=== PATIENT | female | born 1990 | race Caucasian/White ===

== ENCOUNTER → 2019-04-29 | Outpatient (CLI) | payer OTHER ==
--- NOTE | 2019-04-29 21:03 | ECHOS ---
STRESS ECHOCARDIOGRAM LUMASON: @@ Vial INDICATIONS: Abnormal EKG MEDICATIONS: control, Bentyl BASELINE HEART RATE: 85 BASELINE BLOOD PRESSURE: 111/76 MAXIMUM HEART RATE: 180 MAXIMUM BLOOD PRESSURE: 151/71 85% MPHR: 165 100% MPHR: 194 METS: 11.7 MAXIMUM STAGE REACHED: 4 TOTAL EXERCISE TIME: 10 minutes CLINICAL INFORMATION: This is an exercise stress echocardiogram. The patient has an abnormal ECG. Baseline heart rate 85 beats per minute. Baseline blood pressure 111/76 mmHg. Baseline 12-lead ECG shows normal sinus rhythm with a [address] depression inferolaterally. Patient exercised on a Soren protocol for 10 minutes, achieving a peak heart rate of 180 beats per minute. Normal blood pressure response. There was no ECG evidence for ischemia. No arrhythmias were noted. Baseline 2D echo images showed normal LV size and systolic function without segmental wall motion abnormalities. At peak exercise, there was augmentation of overall LV contractility without development of any clear-cut wall motion abnormalities. At recovery, regional global LV systolic function remained normal. IMPRESSION: 1. No ECG evidence for ischemia. 2. No clear-cut echocardiographic evidence for ischemia. 3. Excellent exercise capacity. MMODL / IJN: [id number] /
== END | disposition home or self-care (01) ==
LOC: RADNMMAIN 09:04
PROVIDERS: ATTEND Family Medicine
DX: I49.9 Cardiac arrhythmia, unspecified (principal)
CPT/HCPCS: 93351

== ENCOUNTER 2021-11-15 19:35 | Emergency (ER) | payer BC, OTHER ==
[2021-11-15 21:28] VITALS: TEMP 98.2
[2021-11-15 22:00] LABS: Basophils % (A) 0 %; Eosinophils # (A) 0.1 k/uL (0-0.7); Eosinophils % (A) 1 %; HCT 41.1 % (34.0-46.0); HGB 13.5 gm/dL (11.4-16.0); Lymphocytes # (A) 2.7 k/uL (1.0-4.8); Lymphocytes % (A) 26 %; MCHC 32.9 g/dL (31.0-37.0); MCV 88.2 fL (80.0-100.0); Mean Platelet Volume 8.2; Monocytes # (A) 0.5 k/uL (0-1.0); Monocytes % (A) 5 %; Neutrophils # (A) 6.9 k/uL (1.3-7.7); Neutrophils % (A) 66 %; Platelet Count 218 k/uL (150-450); RBC 4.66 m/uL (3.80-5.40); RDW 13.8 % (11.5-15.5); WBC 10.3 k/uL (3.8-10.6)
[2021-11-15 22:20] LABS: Appearance,Urine Clear (Clear); Bacteria,Urine Rare /hpf; Bilirubin,Urine Negative (Negative); Blood,Urine Moderate (Negative); Color,Urine Light Yellow; Glucose,Urine (UA) Negative (Negative); Ketones,Urine Negative (Negative); Leukocyte Esterase,Urine Moderate (Negative); Mucus,Urine Few /hpf; Nitrite,Urine Negative (Negative); PH, Urine 6.5 (5.0-8.0); Protein,Urine Negative (Negative); RBC,Urine 1 /hpf (0-5); Specific Gravity,Urine 1.019 (1.001-1.035); Squamous Epithelial Cell,Urine 2 /hpf (0-4); Urobilinogen,Urine <2.0 mg/dL (<2.0); WBC,Urine 13 /hpf (0-5)
[2021-11-15 22:24] LABS: ALT 16 U/L (4-34); AST 21 U/L (14-36); African American GFR (CKD) >90 (>60 ml/min/1.73 sqM); Albumin 4.8 g/dL (3.5-5.0); Alkaline Phosphatase 68 U/L (38-126); Anion Gap 15 mmol/L; Blood Urea Nitrogen 12 mg/dL (7-17); Calcium 9.9 mg/dL (8.4-10.2); Carbon Dioxide 21 mmol/L (22-30); Chloride 101 mmol/L (98-107); Glucose 89 mg/dL (74-99); Non-African American GFR(CKD) >90 (>60 ml/min/1.73 sqM); Potassium 3.6 mmol/L (3.5-5.1); Sodium 137 mmol/L (137-145); Total Bilirubin 0.2 mg/dL (0.2-1.3); Total Protein 7.5 g/dL (6.3-8.2)
--- NOTE | 2021-11-15 23:30 | ED ---
Female Urogenital HPI - General Chief complaint: Vaginal Bleeding Stated complaint: Bleeding 9 weeks preg,cramping Time Seen by Provider: 11/15/21 23:24 Source: patient, RN notes reviewed Mode of arrival: ambulatory Limitations: no limitations - History of Present Illness Initial comments: 6 is a pleasant 31-year-old female with a history of cardiomyopathy. Patient states she started having some vaginal bleeding today. She states this is quite late and much less than her normal menses. Patient denies any presyncopal symptoms. No chest pain. Patient does have cardiomyopathy and states she was taken off of her beta christine about 5 days ago due to the . She states she does occasionally get some palpitations due to that. Patient has an upcoming appointment with her hand stoner. Really denies any abdominal or pelvic pain. No headache, no fever or chills, no changes in vision or hearing, no sore throat or difficulty with speech, no neck pain, no chest pain or shortness of breath, no abdominal pain, no nausea or vomiting, no changes in urination or bowel movements, no numbness or tingling, no extremity pain, no skin rashes or lesions. Past medical, surgical, social, and family history reviewed. Patient is A0 Complaint: vaginal bleeding - Related Data Home Medications Medication Instructions Recorded Confirmed Fluticasone Nasal [place] [Flonase 2 spr EA NOSTRIL DAILY 06/28/15 06/28/15 Nasal [place]] Montelukast [Singulair] 10 mg PO DAILY 06/28/15 06/28/15 norgestimate-ethinyl estradioL 1 tab PO DAILY 06/28/15 06/28/15 [Tri-Sprintec Tablet] Previous Rx's Medication Instructions Recorded Amoxicillin/Potassium Clav 1 each PO Q12HR #20 tab 06/28/15 [Augmentin 875-125 Tablet] Nitrofurantoin Monohyd/M-Cryst 100 mg PO Q12HR #10 cap 11/16/21 [Macrobid] Allergies Allergy/AdvReac Type Severity Reaction Status Date / Time No Known Allergies Allergy Verified 11/15/21 21:28 Review of Systems ROS Statement: Those systems with pertinent positive or pertinent negative responses have been documented in the HPI. ROS Other: All systems not noted in ROS Statement are negative. Past Medical History Past Medical History: No Reported History Additional Past Medical History / Comment(s): cardiomyopathy History of Any Multi-Drug Resistant Organisms: None Reported Past Surgical History: No Surgical Hx Reported Past Psychological History: No Psychological Hx Reported Smoking Status: Never smoker Past Alcohol Use History: None Reported Past Drug Use History: None Reported General Exam - General Exam Comments Initial Comments: Patient does not appear to be in any significant distress. Vital signs stable, patient afebrile. Limitations: no limitations General appearance: alert, in no apparent distress Head exam: Present: atraumatic, normocephalic, normal inspection Eye exam: Present: normal appearance, PERRL, EOMI. Absent: scleral icterus, conjunctival injection, periorbital swelling ENT exam: Present: normal exam, mucous membranes moist Neck exam: Present: normal inspection, full ROM. Absent: tenderness, meningismus, lymphadenopathy Respiratory exam: Present: normal lung sounds bilaterally. Absent: respiratory distress, wheezes, rales, rhonchi, stridor Cardiovascular Exam: Present: regular rate, normal rhythm, normal heart sounds. Absent: systolic murmur, diastolic murmur, rubs, gallop, clicks GI/Abdominal exam: Present: soft, normal bowel sounds. Absent: distended, tenderness, guarding, rebound, rigid Extremities exam: Present: normal inspection, full ROM, normal capillary refill. Absent: tenderness, pedal edema, joint swelling, calf tenderness Back exam: Present: normal inspection Neurological exam: Present: alert, oriented X3, CN II-XII intact Psychiatric exam: Present: normal affect, normal mood Skin exam: Present: warm, dry, intact, normal color. Absent: rash Course Vital Signs 11/15/21 21:24 Temperature 98.2 F Pulse Rate 83 Respiratory 20 Rate Blood Pressure 131/71 O2 Sat by Pulse 100 Oximetry - Reevaluation(s) Reevaluation #1: 11/15/21 23:54 Quantitative hCG is 133,613. Patient's urinalysis does show 13 white blood cells per high-powered field with rare bacteria. Given that the patient is and I'm going to order a urine culture and treat with nitrofurantoin. Currently awaiting Rh factor. Medical Decision Making - Medical Decision Making Patient's Rh factor is negative. Patient will require isoimmunization with RhoGAM. All findings discussed with the patient. Urine culture ordered. Patient to follow-up with ROD FILLER. Patient is hemodynamically stable. Transvaginal ultrasound shows a 6 week 5 day intrauterine which is discordant with the patient's last menstrual period of 08/14/2021. However, heart rate is 142. No other comp caning processes are seen. Patient has a follow-up appointment with her design technology teacher on Friday. Patient deferred a pelvic examination. Patient has no vaginal discharge. Patient in no distress. Has no pain. Patient will be given RhoGAM We will treat the patient with 5 days of Macrobid. All findings discussed with the patient. All questions answered. Patient be put on pelvic rest until follow-up on Friday. The case was discussed in detail with ED attending physician. Presentation, findings, treatment plan discussed in detail. Ricardo or Dr. Blackwood - Lab Data Result diagrams: 11/15/21 21:43 11/15/21 21:43 Lab Results 11/15/21 11/15/21 11/15/21 Range/Units 21:39 21:43 21:43 WBC 10.3 (3.8-10.6) k/uL RBC 4.66 (3.80-5.40) m/uL Hgb 13.5 (11.4-16.0) gm/dL Hct 41.1 (34.0-46.0) % MCV 88.2 (80.0-100.0) fL MCH 29.0 (25.0-35.0) pg MCHC 32.9 (31.0-37.0) g/dL RDW 13.8 (11.5-15.5) % Plt Count 218 (150-450) k/uL MPV 8.2 Neutrophils % 66 % Lymphocytes % 26 % Monocytes % 5 % Eosinophils % 1 % Basophils % 0 % Neutrophils # 6.9 (1.3-7.7) k/uL Lymphocytes # 2.7 (1.0-4.8) k/uL Monocytes # 0.5 (0-1.0) k/uL Eosinophils # 0.1 (0-0.7) k/uL Basophils # 0.0 (0-0.2) k/uL Sodium 137 (137-145) mmol/L Potassium 3.6 (3.5-5.1) mmol/L Chloride 101 (98-107) mmol/L Carbon Dioxide 21 L (22-30) mmol/L Anion Gap 15 mmol/L BUN 12 (7-17) mg/dL Creatinine 0.51 L (0.52-1.04) mg/dL Est GFR (CKD-EPI)AfAm >90 (>60 ml/min/1.73 sqM) Est GFR (CKD-EPI)NonAf >90 (>60 ml/min/1.73 sqM) Glucose 89 (74-99) mg/dL Calcium 9.9 (8.4-10.2) mg/dL Total Bilirubin 0.2 (0.2-1.3) mg/dL AST 21 (14-36) U/L ALT 16 (4-34) U/L Alkaline Phosphatase 68 (38-126) U/L Total Protein 7.5 (6.3-8.2) g/dL Albumin 4.8 (3.5-5.0) g/dL HCG, Quant 788003.0 mIU/mL Urine Color Urine Appearance (Clear) Urine pH (5.0-8.0) Ur Specific [place] (1.001-1.035) Urine Protein (Negative) Urine Glucose (UA) (Negative) Urine Ketones (Negative) Urine Blood (Negative) Urine Nitrite (Negative) Urine Bilirubin (Negative) Urine Urobilinogen (<2.0) mg/dL Ur Leukocyte Esterase (Negative) Urine RBC (0-5) /hpf Urine WBC (0-5) /hpf Ur Squamous Epith Cells (0-4) /hpf Urine Bacteria (None) /hpf Urine Mucus (None) /hpf Blood Type O Negative Blood Type Recheck No Previous Record Bld Type Recheck Status CABO Indicated Antibody Screen NEGATIVE Spec Expiration Date 11/18/2021 - 233811/15/21 Range/Units 21:54 WBC (3.8-10.6) k/uL RBC (3.80-5.40) m/uL Hgb (11.4-16.0) gm/dL Hct (34.0-46.0) % MCV (80.0-100.0) fL MCH (25.0-35.0) pg MCHC (31.0-37.0) g/dL RDW (11.5-15.5) % Plt Count (150-450) k/uL MPV Neutrophils % % Lymphocytes % % Monocytes % % Eosinophils % % Basophils % % Neutrophils # (1.3-7.7) k/uL Lymphocytes # (1.0-4.8) k/uL Monocytes # (0-1.0) k/uL Eosinophils # (0-0.7) k/uL Basophils # (0-0.2) k/uL Sodium (137-145) mmol/L Potassium (3.5-5.1) mmol/L Chloride (98-107) mmol/L Carbon Dioxide (22-30) mmol/L Anion Gap mmol/L BUN (7-17) mg/dL Creatinine (0.52-1.04) mg/dL Est GFR (CKD-EPI)AfAm (>60 ml/min/1.73 sqM) Est GFR (CKD-EPI)NonAf (>60 ml/min/1.73 sqM) Glucose (74-99) mg/dL Calcium (8.4-10.2) mg/dL Total Bilirubin (0.2-1.3) mg/dL AST (14-36) U/L ALT (4-34) U/L Alkaline Phosphatase (38-126) U/L Total Protein (6.3-8.2) g/dL Albumin (3.5-5.0) g/dL HCG, Quant mIU/mL Urine Color Light Yellow Urine Appearance Clear (Clear) Urine pH 6.5 (5.0-8.0) Ur Specific [place] 1.019 (1.001-1.035) Urine Protein Negative (Negative) Urine Glucose (UA) Negative (Negative) Urine Ketones Negative (Negative) Urine Blood Moderate H (Negative) Urine Nitrite Negative (Negative) Urine Bilirubin Negative (Negative) Urine Urobilinogen <2.0 (<2.0) mg/dL Ur Leukocyte Esterase Moderate H (Negative) Urine RBC 1 (0-5) /hpf Urine WBC 13 H (0-5) /hpf Ur Squamous Epith Cells 2 (0-4) /hpf Urine Bacteria Rare H (None) /hpf Urine Mucus Few H (None) /hpf Blood Type Blood Type Recheck Bld Type Recheck Status Antibody Screen Spec Expiration Date Disposition Clinical Impression: Threatened miscarriage in early Disposition: HOME SELF-CARE Condition: Stable Instructions (If sedation given, give patient instructions): Threatened Miscarriage (ED) Additional Instructions: Pelvic rest as discussed. Follow-up with your design technology teacher on Friday as planned. Follow-up with your regular physician as directed. Return to the ER immediately if any symptoms worsen, new symptoms arise, or any other problems develop. Take antibiotics as directed. Have a serum quantitative hCG drawn prior to your appointment on Friday Is patient prescribed a controlled substance at d/c from ED?: No Referrals: Gwen Rodrigues DO [Primary Care Provider] - 1-2 days (As needed) Time of Disposition: 00:16
--- NOTE | 2021-11-15 23:32 | US ---
EXAMINATION TYPE: Transabdominal DATE OF EXAM: 11/15/2021 10:47 PM COMPARISON: NONE CLINICAL HISTORY: bleeding. light bleeding today EXAM PERFORMED: Transabdominal (TA) EXAM MEASUREMENTS: GESTATIONAL AGE / DATING Physician Established: Not yet established Dates by LMP: 08/14/21 (13 weeks/2 days) EDC: 05/21/22 Dates by First Scan: No previous this is first scan Dates by Current Scan for: (6 weeks/5 days) EDC: 07/06/22 MATERNAL ANATOMY Uterus: 8.5 x 6.6 x 5.4 cm Right Ovary: 3.0 x 2.0 x 2.2 cm Left Ovary: Not vis Post CDS / Adnexa: WNL Presence of free fluid: No Presence of corpus luteal cyst: No Presence of subchorionic bleed: No GESTATION / SURVEY CRL: 0.84cm (6 weeks/5 days) Yolk Sac (normal less than 6mm): 2.5mm Heart Rate: 142 bpm Rhythm: Normal IUP: Viable IUP Date of LMP: 08/14/21 Beta HcG (if available): 133,613 IMPRESSION: The ultrasound gestational age is 6 weeks and 5 days. No complicating process seen.
[2021-11-15] MEDS ORDERED: Rhogam IMMUNE GLOBULIN 1,500 UNIT/1 ML IM STA (23:55)
[2021-11-15] MEDS ORDERED: NITROFURANTOIN MONOHYD/M-CRYST 100 MG CAP PO STA (23:55)
[2021-11-16 00:59] VITALS: BP 108/68; PULSE 77; RESP 16
== END 2021-11-16 01:16 | disposition home or self-care (01) ==
LOC: EC 19:35
DX: O20.0 Threatened abortion (principal); Z3A.09 9 weeks gestation of pregnancy
CPT/HCPCS: 36415; 86900; 86901; 80053; 85025; 86850; 81001; 84702; 87086; 76801; 99284; 96372; J2790

== ENCOUNTER 2022-06-26 05:48 | Inpatient (IN) | payer BC ==
[2022-06-26] MEDS ORDERED: OXYTOCIN 10 UNIT/ML 1 ML VIAL IM PRN (06:04)
[2022-06-26] MEDS ORDERED: METHYLERGONOVINE 0.2 MG/ML 1 ML AMP IM PRN (06:04)
[2022-06-26] MEDS ORDERED: LIDOCAINE 0.5% (PF) 5 MG/ML (50 ML SDV) SQ PRN (06:04)
[2022-06-26] MEDS ORDERED: CARBOPROST TROMETHAMINE 250 MCG/ML 1 ML AMP IM PRN (06:04)
[2022-06-26] MEDS ORDERED: TRANEXAMIC ACID IN NACL,ISO-OS 1,000 MG in EMPTY BAG 1 BAG IV PRN (06:04)
[2022-06-26] MEDS ORDERED: miSOPROStoL 200 MCG TAB PO PRN (06:04)
[2022-06-26] MEDS ORDERED: TERBUTALINE 1 MG/ML VIAL SQ PRN (06:04)
[2022-06-26 06:14] LABS: Glucose,Whole Blood 91 mg/dL (70-110)
[2022-06-26] MEDS ORDERED: OXYTOCIN 30 UNITS/500 ML NS 30 UNIT in SALINE 1 500ML.BAG IV SCH ×2 (06:15→19:00)
[2022-06-26 06:34] LABS: Basophils % (A) 0 %; Eosinophils # (A) 0.1 k/uL (0-0.7); Eosinophils % (A) 1 %; HCT 34.2 % (34.0-46.0); HGB 11.2 gm/dL (11.4-16.0); Lymphocytes # (A) 2.5 k/uL (1.0-4.8); Lymphocytes % (A) 22 %; MCH 25.7 pg (25.0-35.0); MCHC 32.7 g/dL (31.0-37.0); MCV 78.7 fL (80.0-100.0); Mean Platelet Volume 11.1; Monocytes # (A) 0.6 k/uL (0-1.0); Monocytes % (A) 5 %; Neutrophils # (A) 8.3 k/uL (1.3-7.7); Neutrophils % (A) 70 %; Platelet Count 146 k/uL (150-450); RBC 4.35 m/uL (3.80-5.40); RDW 15.1 % (11.5-15.5); WBC 11.8 k/uL (3.8-10.6)
[2022-06-26] MEDS: LACTATED RINGERS 1,000 ML IV SCH ×4 (06:52→12:50)
[2022-06-26] MEDS ORDERED: SODIUM CHLORIDE 0.9% 100 ML BAG ONE (10:20)
[2022-06-26] MEDS ORDERED: fentaNYL (PF) 50 MCG/ML 5 ML AMP ONE (10:20)
[2022-06-26] MEDS ORDERED: ROPIVACAINE 5 MG/ML 20 ML AMPULE ONE (10:20)
[2022-06-26] MEDS ORDERED: ROPIVACAINE 100 MG, fentaNYL (PF). 200 MCG in SODIUM CHLORIDE 0.9% 76 ML EPIDURAL ONE (10:52)
[2022-06-26] MEDS ORDERED: ROPIVACAINE 225 MG, fentaNYL (PF). 450 MCG in SODIUM CHLORIDE 0.9% 171 ML EPIDURAL ONE (11:00)
[2022-06-26] MEDS ORDERED: CITRIC ACID-SODIUM CITRATE 15 ML CUP PO ONE (18:00)
[2022-06-26] MEDS ORDERED: OXYTOCIN 30 UNITS/500 ML NS BAG IV ONE (18:03)
[2022-06-26] MEDS ORDERED: OXYTOCIN 10 UNIT/ML 1 ML VIAL ONE (18:03)
[2022-06-26] MEDS ORDERED: MORPHINE SULFATE (PF) 0.3 MG/0.3 ML SYR ONE (18:03)
[2022-06-26] MEDS ORDERED: ONDANSETRON 4 MG/2 ML VIAL ONE (18:03)
[2022-06-26] MEDS ORDERED: fentaNYL (PF) 50 MCG/ML 2 ML AMP ONE (18:03)
[2022-06-26] MEDS ORDERED: LIDOCAINE HCL/PF 20 MG/ML 10 ML AMP ONE (18:03)
[2022-06-26] MEDS ORDERED: ZOLPIDEM 5 MG TAB PO PRN (18:46)
[2022-06-26] MEDS ORDERED: diphenhydrAMINE 50 MG/ML 1 ML VIAL IVP PRN ×2 (18:46)
[2022-06-26] MEDS ORDERED: diphenhydrAMINE 50 MG CAP PO PRN (18:46)
[2022-06-26] MEDS ORDERED: NALOXONE 0.4 MG/ML 1 ML VIAL IV PRN (18:46)
[2022-06-26] MEDS ORDERED: ONDANSETRON 4 MG/2 ML VIAL IVP PRN (18:46)
[2022-06-26] MEDS ORDERED: diphenhydrAMINE 25 MG CAP PO PRN (18:46)
[2022-06-26] MEDS ORDERED: SIMETHICONE 80 MG CHEWABLE PO PRN (18:46)
[2022-06-26] MEDS ORDERED: METOCLOPRAMIDE 5 MG/ML 2 ML VIAL IVP PRN (18:46)
--- NOTE | 2022-06-26 18:55 | P.HPOB ---
History of Present Illness H&P Date: 06/26/22 Chief Complaint: IUP at 39 weeks, GDM 31-year-old 1 para 0 at 39 weeks of presents for induction of labor. Patient has a prior question will history of cardiac myopathy for which she sees cardiology. Patient's cardiac function has been normal. Cardiology has seen this patient during the and prior. Patient had been receiving routine care which was complicated by diagnosis of gestational diabetes, gestational diabetes was well-controlled with diet. Patient underwent testing which has been normal. On bloodwork this patient has a blood type of O-, rubella nonimmune, hepatitis B surface antigen negative, HIV negative, RPR is nonreactive, group beta strep culture negative Review of Systems Constitutional: Denies chills, Denies fatigue, Denies fever Ears, nose, mouth and throat: Denies headache Cardiovascular: Denies leg edema Respiratory: Denies dyspnea Gastrointestinal: Denies constipation, Denies diarrhea, Denies nausea, Denies vomiting Genitourinary: Reports Past Medical History Past Medical History: No Reported History Additional Past Medical History / Comment(s): cardiomyopathy, GDM History of Any Multi-Drug Resistant Organisms: None Reported Past Surgical History: No Surgical Hx Reported Past Psychological History: No Psychological Hx Reported Smoking Status: Never smoker Past Alcohol Use History: None Reported Past Drug Use History: None Reported Medications and Allergies Home Medications Medication Instructions Recorded Confirmed Type Fluticasone Nasal [place] [Flonase 2 spr EA NOSTRIL DAILY 06/28/15 06/26/22 History Nasal [place]] Aspirin [Adult Low Dose Aspirin EC] 81 mg PO DAILY 06/26/22 06/26/22 History Cetirizine HCl [Zyrtec] 10 mg PO DAILY 06/26/22 06/26/22 History Vit No.179/Iron/Folic 1 tab PO DAILY 06/26/22 06/26/22 History [ Tablet] Allergies Allergy/AdvReac Type Severity Reaction Status Date / Time No Known Allergies Allergy Verified 11/15/21 21:28 Exam Osteopathic Statement: *. No significant issues noted on an osteopathic structural exam other than those noted in the History and Physical/Consult. Vital Signs Temp Pulse Resp BP Pulse Ox 06/26/22 05:59 97.8 F 105 H 18 139/86 99 Intake and Output 06/25/22 06/26/22 06/26/22 22:59 06:59 14:59 Other: # Voids 1 Weight 89.358 kg Targeted physical exam is performed in this date and aboriginal home school liaison officer a well-nourished well-developed female in no acute distress, breathing is noted to be nonlabored, heart has a regular rate and rhythm, abdomen is gravid and appropriate for gestational age, on cervical exam she is a tight 2 cm, 70% effaced, -3 station, amniotomy is performed and clear fluid was obtained. heart tones returned be category 1 and she is [place] every 3-5 minutes. Results Result Diagrams: 06/26/22 06:05 Abnormal Lab Results - Last 24 Hours (Table) 06/26/22 Range/Units 06:05 WBC 11.8 H (3.8-10.6) k/uL Hgb 11.2 L (11.4-16.0) gm/dL MCV 78.7 L (80.0-100.0) fL Plt Count 146 L (150-450) k/uL Neutrophils # 8.3 H (1.3-7.7) k/uL Assessment and Plan (1) 39 weeks gestation of Current Visit: Yes Status: Acute Code(s): Z3A.39 - 39 WEEKS GESTATION OF SNOMED Code(s): 13405942 (2) GDM (gestational diabetes mellitus), class A1 Current Visit: Yes Status: Acute Code(s): O24.410 - GESTATIONAL DIABETES MELLITUS IN , DIET CONTROLLED SNOMED Code(s): 02148494 Plan: 31-year-old 1 para 0 at 39 weeks of presents for induction of labor secondary to gestational diabetes and personal cardio myopathy. Cardiology did not fully agree with diagnosis of cardiomyopathy but has been on consult throughout the . Patient has done well. Patient was admitted and Pitocin induction of labor was begun per hospital protocol. Patient is counseled on options for analgesia including nitrous, Stadol, epidural. Patient will consider and is strongly encouraged to get epidural giving her cardiac function. We will anticipate spontaneous vaginal delivery later today.
--- NOTE | 2022-06-26 18:55 | P.OP ---
Date of Procedure: 06/26/22 Preoperative Diagnosis: IUP @ 39 5/7 weeks, GDM A1, h/o cardiomyopathy with cardiac follow up, arrest of descent, OP presentation Postoperative Diagnosis: Same Procedure(s) Performed: Primary low transverse section Anesthesia: epidural Surgeon: Sushma Singh Electrical Calibrator #1: Cori Rubio Estimated Blood Loss (ml): 720 IV fluids (ml): 300 Urine output (ml): 150 (red, but clear at the end of the procedure ) Pathology: other (Placenta) Condition: stable Disposition: observation Indications for Procedure: 31-year-old 1 para 0 at 39-5/7 weeks admitted for Pitocin induction of labor. Patient was admitted and made good progress through labor, amniotomy is performed and clear fluid was obtained. Patient did request epidural which was placed that difficulty by the anesthesia . Patient made good progress to complete began pushing. After proximal plane 3 hours of pushing arrest of descent was appreciated with occiput posterior presentation. Finds were discussed with patient and . Given no descent after 3 hours and increasing Formation decision for primary was made. Patient agreed with this decision and consent were signed. Operative Findings: Viable male in occiput posterior presentation, delivery at 1819 Normal uterus and polycystic ovaries were appreciated. Description of Procedure: Patient was taken back to the operating suite where epidural anesthesia was found be adequate. She was prepped and draped in normal sterile fashion in the dorsal supine position. Vogt catheter had been placed prior to procedure. Blood-tinged urine was appreciated upon insertion. A Pfannenstiel skin incision was made with the scalpel and carried through the underlying layer of fascia. Fascia was incised and extended laterally. The superior aspect of the fascial incision was then grasped the [place] clamps, elevated and underlying rectus muscles dissected off sharply. The inferior aspect of the fascial incision was then grasped chika clamps, elevated and underlying rectus muscles dissected off sharply. The rectus muscles were in the midline the peritoneum was identified and entered. The bladder blade was inserted into the pelvis. The vesicouterine peritoneum was identified and a bladder flap was created using sharp and blunt dissection. Hysterotomy incision was then performed the was encountered in occiput posterior presentation and delivered in the usual fashion. A spontaneous cry was appreciated. The umbilical cord was doubly clamped and cut and the was handed off to awaiting RN. The pledgets was delivered manually and the uterus was exteriorized and cleared of all clots and debris. Uterine incision was inspected and closed with 0 Vicryl in a running locked fashion. A second imbricated suture was performed. Multiple sites of bleeding were appreciated therefore partially 4 [id number] sutures were used to obtain hemostasis. The uterus was then returned to the abdomen. The gutters were cleared of all clots and debris. The hysterotomy incision was inspected and found to be hemostatic. The rectus muscles were then inspected hemostasis was noted. The fascia was then closed 0 Vicryl in a running fashion from one lateral edge the midline and the other lateral edge the midline. Subcu tissue was inspected any points of bleeding were noted to be hemostatic with the Bovie. The subcutaneous tissues closed with 3-0 Vicryl in a running fashion. The skin was then closed with 4-0 Vicryl in a subcuticular fashion. Steri-Str ips and sterile dressings were applied. All counts were correct 2 at the end of delivery. Patient and infant tolerated delivery well and are resting comfortably.
[2022-06-26] MEDS ORDERED: IBUPROFEN IV 800 MG in SODIUM CHLORIDE 0.9% 250 ML IV PRN (19:00)
[2022-06-27] MEDS ORDERED: ACETAMINOPHEN IV (For NPO) 1,000 MG in EMPTY BAG 1 BAG IVPB PRN
[2022-06-27] MEDS: LACTATED RINGERS 1,000 ML IV SCH ×5 (01:38→22:38)
[2022-06-27] MEDS: SENNOSIDES-DOCUSATE SODIUM 1 EACH TAB PO SCH ×3 (01:38→22:38)
[2022-06-27] MEDS: IBUPROFEN 600 MG TAB PO SCH ×3 (01:39→20:14)
[2022-06-27] MEDS: ACETAMINOPHEN TAB 500 MG TAB PO SCH ×4 (01:39→22:42)
[2022-06-27] MEDS ORDERED: Rhogam IMMUNE GLOBULIN 1,500 UNIT/1 ML IM ONE (04:54)
--- NOTE | 2022-06-27 06:10 | P.PN ---
Progress Note - Text Date: 06/27/2022 Time: 05:28 The patient is status post section Vital signs stable VAS: 0-10 Patient has no complaints of pain. The patient incurred some minimal itching yesterday, this itching is now subsiding. Pain meds to be managed by service.
[2022-06-27 07:39] LABS: Basophils % (A) 0 %; Eosinophils % (A) 0 %; Hypochromasia Slight; Lymphocytes # (A) 2.1 k/uL (1.0-4.8); Lymphocytes % (A) 15 %; MCH 24.7 pg (25.0-35.0); MCHC 31.3 g/dL (31.0-37.0); Mean Platelet Volume 11.5; Monocytes # (A) 0.7 k/uL (0-1.0); Monocytes % (A) 5 %; Neutrophils # (A) 10.6 k/uL (1.3-7.7); Neutrophils % (A) 78 %; Platelet Count 106 k/uL (150-450); RBC 3.67 m/uL (3.80-5.40); RDW 15.4 % (11.5-15.5); WBC 13.7 k/uL (3.8-10.6)
[2022-06-27 07:46] LABS: HGB 9.1 gm/dL (11.4-16.0)
--- NOTE | 2022-06-27 09:47 | P.PNOBGPC ---
Subjective - Subjective Principal diagnosis: POD 1 LTCS Interval history: Patient is doing well this am. she states her pain is well controlled. awaiting a spontaneous void. lochia is moderate. she is tolerating clear liquids without n/v. Patient reports: Reports voiding normally, Reports pain well controlled, Reports ambulating normally, Denies nauseated : doing well Objective - Vital Signs Latest vital signs: Vital Signs Temp Pulse Resp BP Pulse Ox 06/27/22 08:00 97.8 F 71 16 115/61 06/27/22 04:00 97.5 F L 71 16 123/58 06/27/22 00:00 98.9 F 86 16 140/64 98 06/26/22 20:56 98.9 F 82 16 135/68 06/26/22 20:26 16 06/26/22 20:00 99.0 F 88 16 134/78 06/26/22 19:56 99.1 F 80 16 135/82 06/26/22 19:41 99.5 F 82 16 135/80 06/26/22 19:26 99.5 F 76 16 132/77 06/26/22 19:11 99.2 F 96 16 138/86 06/26/22 18:56 97.8 F 96 18 138/86 Intake and Output 06/26/22 06/27/22 06/27/22 22:59 06:59 14:59 Intake Total 200 250.0 Output Total 2145 2800 Balance -1945 -2800 250.0 Intake: IV 250.0 Invasive Line 1 125 Oral 200 Output: Urine 1100 2800 Uretheral (Vogt) 1400 Output, Quantitative 1045 Blood Loss - Exam Extremities: Present: normal, edema Abdomen: Present: normal appearance, soft Incision: Present: normal, dry, intact Uterus: Present: normal, firm - Labs Labs: Abnormal Lab Results - Last 24 Hours (Table) 06/27/22 Range/Units 06:43 WBC 13.7 H (3.8-10.6) k/uL RBC 3.67 L (3.80-5.40) m/uL Hgb 9.1 L D (11.4-16.0) gm/dL Hct 29.0 L (34.0-46.0) % MCV 79.0 L (80.0-100.0) fL MCH 24.7 L (25.0-35.0) pg Plt Count 106 L (150-450) k/uL Neutrophils # 10.6 H (1.3-7.7) k/uL Assessment and Plan (1) 39 weeks gestation of Current Visit: Yes Status: Acute Code(s): Z3A.39 - 39 WEEKS GESTATION OF SNOMED Code(s): 16357248 (2) GDM (gestational diabetes mellitus), class A1 Current Visit: Yes Status: Acute Code(s): O24.410 - GESTATIONAL DIABETES MELLITUS IN , DIET CONTROLLED SNOMED Code(s): 95812505 Plan: Patient is doing well post operatively, will advance diet to regular. awaiting spontaneous void. is struggling with breast feeding and she will see LC today. she does desires circumcision prior to discharge.
[2022-06-27] MEDS: PRENATAL VIT-IRON-FOLIC ACID 1 EACH TABLET PO SCH (20:12)
[2022-06-28] MEDS: IBUPROFEN 600 MG TAB PO SCH ×2 (01:50→08:34)
[2022-06-28] MEDS: ACETAMINOPHEN TAB 500 MG TAB PO SCH ×2 (05:15→12:49)
[2022-06-28] MEDS: LACTATED RINGERS 1,000 ML IV SCH (05:18)
--- NOTE | 2022-06-28 07:17 | P.DS ---
Providers Date of admission: 06/26/22 05:48 Expected date of discharge: 06/28/22 Attending physician: Sushma Singh Primary care physician: Stated None - Discharge Diagnosis(es) (1) 39 weeks gestation of Current Visit: Yes Status: Acute (2) GDM (gestational diabetes mellitus), class A1 Current Visit: Yes Status: Acute (3) Arrest of descent, delivered, current hospitalization Current Visit: Yes Status: Acute (4) Occiput posterior presentation of fetus Current Visit: Yes Status: Acute (5) S/P section Current Visit: Yes Status: Acute Hospital Course: this is a 31-year-old G1 now P1 that presented to labor and delivery at 39-5/7 weeks for induction of labor. Patient was diagnosed with gestational diabetes during the and has been well-controlled with diet alone. Of note patient does have a question will history of cardiomyopathy and has been followed closely with cardiology throughout the . No concerns for delivery were noted be a cardiology consult. Patient was admitted and Pitocin induction of labor was begun. Patient made good progress through labor amniotomy was performed and clear fluid was obtained. Patient did receive an epidural for pain control throughout labor. Patient did progress to complete and began pushing. After approximately 3 hours of pushing no descent was appreciated in occiput posterior presentation was determined. Increasing Was noted. Discussion with patient and patient's regarding position of the and decision was made to proceed with primary . Patient was taken back to the operating suite where primary was delivered performed without difficulty. Patient had a viable male infant delivered at 1819. Patient has done well post operatively. On this postoperative day #2 she is ambulating and voiding without difficulty. She is breast-feeding with some difficulty and will see today. Patient states her pain is well- controlled. She would like discharge home later today if possible. Patient Condition at Discharge: Good Plan - Discharge Summary New Discharge Prescriptions: No Action Fluticasone Nasal [place] [Flonase Nasal [place]] 2 spr EA NOSTRIL DAILY Cetirizine HCl [Zyrtec] 10 mg PO DAILY Vit No.179/Iron/Folic [ Tablet] 1 tab PO DAILY Aspirin [Adult Low Dose Aspirin EC] 81 mg PO DAILY Discharge Medication List Fluticasone Nasal [place] [Flonase Nasal [place]] 2 spr EA NOSTRIL DAILY 06/28/15 [History] Aspirin [Adult Low Dose Aspirin EC] 81 mg PO DAILY 06/26/22 [History] Cetirizine HCl [Zyrtec] 10 mg PO DAILY 06/26/22 [History] Vit No.179/Iron/Folic [ Tablet] 1 tab PO DAILY 06/26/22 [History] Follow up Appointment(s)/Referral(s): Sushma Singh DO [Doctor of Osteopathic Medicine] - 2 Weeks Patient Instructions/Handouts: (DC), (GEN) Activity/Diet/Wound Care/Special Instructions: no tub baths or intercourse until 6 weeks . Patient is to call the office to make a routine postoperative check at 2 weeks. Should she have any concerns prior to this appointment she is urged to call the office. Discharge Disposition: HOME SELF-CARE
[2022-06-28] MEDS: SENNOSIDES-DOCUSATE SODIUM 1 EACH TAB PO SCH (08:34)
[2022-06-28] MEDS: PRENATAL VIT-IRON-FOLIC ACID 1 EACH TABLET PO SCH (08:34)
[2022-06-28 08:49] VITALS: BP 120/78; PULSE 82; RESP 18; TEMP 97.5
== END 2022-06-28 13:50 | disposition home or self-care (01) | DRG 787 ==
LOC: 4FBP 05:48
PROVIDERS: ADMIT Obstetrics & Gynecology Obstetrics; ATTEND Obstetrics & Gynecology Obstetrics
PROC: 10D00Z1 Extraction of Products of Conception, Low, Open Approach (ICD-10-PCS; principal; 2022-06-26 18:15)
DX: O24.410 Gestational diabetes mellitus in pregnancy, diet controlled (principal); I42.9 Cardiomyopathy, unspecified; O99.413 Diseases of the circulatory system complicating pregnancy, third trimester; E28.2 Polycystic ovarian syndrome; O62.1 Secondary uterine inertia; Z37.0 Single live birth; Z3A.39 39 weeks gestation of pregnancy; Z79.82 Long term (current) use of aspirin
CPT/HCPCS: 85025; 85461; 86850; 86900; 86901; 88307

== ENCOUNTER → 2023-11-26 | Outpatient (CLI) | payer BC ==
--- NOTE | 2023-11-26 09:21 | MR ---
INDICATION: Patient age:Female; 33 years old; Reason for study: G62.9 POLYNEUROPATHY, UNSPECIFIED; [facility]. COMPARISON: None. TECHNIQUE: Multi planar, multi sequence imaging was performed through the brain. The patient was then given 7 cc of Gadavist intravenously and multi planar, T1 fat-saturation images were obtained. FINDINGS: The stratton-white junctions, ventricular system, basal cisterns appear unremarkable. Incidental cavum ve rge. Diffusion-weighted imaging shows no evidence of restricted diffusion to suggest acute/subacute i nfarct. Intracranial arterial flow voids are maintained. Midline structures show no abnormality. No s uspicious FLAIR signal abnormality. The susceptibility weighted images do not reveal any evidence for micro-hemorrhage. After administration of gadolinium, no abnormal enhancement is seen. The bone marrow signal is within normal limits. The paranasal sinuses and globes are unremarkable. IMPRESSION: No evidence of intracranial mass, acute/subacute infarct, or abnormal enhancement. [facility], , 11/26/2023 9:18 AM
== END | disposition home or self-care (01) ==
LOC: RADMRIMAIN 06:31
PROVIDERS: ATTEND Family Medicine
DX: G62.9 Polyneuropathy, unspecified (principal)
CPT/HCPCS: 70553

== ENCOUNTER → 2024-01-02 | Outpatient (CLI) | payer BC ==
--- NOTE | 2024-01-02 09:50 | XR ---
EXAMINATION TYPE: XR cervical spine w flex/ext DATE OF EXAM: 01/02/2024 COMPARISON: NONE HISTORY: 33-year-old female M54.2, cervical pain TECHNIQUE: 9 views FINDINGS: Mild uncovertebral joint arthropathy and facet arthropathy throughout. On the left, there i s mild neuroforaminal narrowing throughout. No significant bony neuroforaminal narrowing on the right side. No predental space widening or prevertebral soft tissue swelling. Normal odontoid view. There is straightening of the normal cervical lordosis. Disc interspaces are maintained. Alignment is maint ained. No subluxation or dynamic spondylolisthesis. IMPRESSION: 1. Scattered mild facet and uncovertebral joint arthropathy. This appears to contribute to variable m ild neuroforaminal narrowing throughout the left side of the cervical spine. 2. Straightening of the normal cervical lordosis could be positional or due to muscle spasm. 3. No malalignment or dynamic subluxation with flexion-extension. [facility], , 01/02/2024 9:48 AM
== END | disposition home or self-care (01) ==
LOC: RADXRMAIN 09:04
PROVIDERS: ATTEND Family Medicine
DX: M47.812 Spondylosis without myelopathy or radiculopathy, cervical region (principal)
CPT/HCPCS: 72052